=== PATIENT | male | born 1960 | race African-American/Black ===

== ENCOUNTER 2018-07-23 11:00 | Inpatient (IN) | payer MEDICAID, OTHER ==
--- NOTE | 2018-07-23 11:48 | EDPHY ---
H & P Smoking Status: Never smoked Time Seen by Provider: 07/23/18 11:24 HPI/ROS: HPI Back pain. 58-year-old male from [facility]. Patient reports that he was seen and evaluated down at [facility] about a month ago and was diagnosed with a blood infection. He reports that as a part of this workup he had a lumbar puncture done. On discharge she was sent to [facility] here in [place]. He presents to the emergency department with complaint of upper lumbar lower thoracic mid back pain onset about a week ago. This is the area where he had his lumbar puncture. He was sent for evaluation of this pain. He denies any loss of sensation or weakness in his lower extremities. He has had no new fevers. He denies any history of trauma. No bowel or bladder incontinence. No other complaints. ROS: Constitutional: No fever, no chills. No weakness. Eyes: No discharge. No changes in vision. ENT: No sore throat. No nasal congestion or rhinorrhea. Respiratory: No cough. No shortness of breath. Cardiac: No chest pain, no palpitations. Gastrointestinal: No abdominal pain, no vomiting, no diarrhea. Genitourinary: No hematuria. No dysuria or increased frequency with urination. Musculoskeletal: As above. No neck pain. No myalgias or arthralgias. Skin: No rashes. Neurological: No headache. No focal weakness or altered sensation. Past medical history: Cirrhosis, type 2 diabetes, hypertension, alcohol abuse, anemia, GERD. Social history: Alcohol abuse. Currently a resident at a [facility]. Denies smoking. Here by himself. Physical Exam: General Appearance: Alert, no distress. This patient is responding to questions appropriately and in full sentences. This patient appears well- hydrated and well-nourished. Eyes: Pupils equal and round no pallor or injection. No lid edema, erythema or injection. Respiratory: There are no retractions, lungs are clear to auscultation with good air movement bilaterally. Cardiovascular: Regular rate and rhythm. No murmur. Gastrointestinal: Abdomen is soft and nontender, mid abdominal wall hernia, easily reducible, bowel sounds normal. No focal tenderness at McBurney's point. No Mtz sign. Neurological: Motor sensory function is grossly intact. Cranial nerves are normal. Gait is normal. Skin: Warm and dry, no rashes. Musculoskeletal/back exam: Neck is supple and nontender. No CVA tenderness on palpation bilaterally, vague and mild mid upper lumbar, lower thoracic tenderness on palpation, seems to go away and not bother him when he is distracted in conversation, no paraspinal tenderness on palpation. No soft tissue swelling, ecchymosis, edema, erythema or rash noted. Negative same side and cross side straight leg raise test. He is neurologically intact in all myotomes in dermatomes of the bilateral lower extremities. Extremities are symmetrical. All joints range without pain or impingement. Psychiatric: No agitation. No depression. Database: EKG: Imaging: Hospital Personnel Director films for MRI clearance all unremarkable. Please see reports by staff radiologist Dr. Anthony Camp. MRI contrast enhanced of lumbar thoracic spine: Procedures: Emergency department course: Triage vital signs reviewed. He is afebrile. Pulse oximetry low at 91% in triage, likely baseline. Vital signs are otherwise normal. IV will be established. Concern for possible diskitis, osteomyelitis or epidural abscess. We will try to get further history on this patient from [facility]. I discussed the patient's presentation with Dr. Vasyl Frausto of the Radiology Service. He recommends a contrast enhanced MRI of the lower thoracic and upper lumbar spine to evaluate for possible fluid collection versus diskitis. This has been ordered. Patient endorses workup. 3:10 p.m., the patient has been cleared for MRI. He is going to the MRI suite now. Care turned over to Dr. Shereen wagner. If MRI is unremarkable, expected disposition is discharged to home. Differential Diagnosis: The differential diagnosis on this patient includes but is not limited to back pain of musculoskeletal etiology, diskitis, osteomyelitis, epidural abscess. AAA, acute radiculopathy, epidural compression syndrome unlikely. This represents a partial list of diagnoses considered. These considerations are based on history, physical exam, past history, reassessment and diagnostic testing. (Nathalia Ibrahim) Constitutional: Initial Vital Signs Temperature (C) 36.6 C 07/23/18 11:03 Heart Rate 94 07/23/18 11:03 Respiratory Rate 18 07/23/18 11:03 Blood Pressure 113/73 07/23/18 11:03 O2 Sat (%) 91 L 07/23/18 11:03 O2 Delivery Mode Room Air Allergies/Adverse Reactions: acetaminophen [From Tylenol] Allergy (Verified 07/23/18 18:43) Rash ibuprofen Allergy (Verified 07/23/18 17:48) Home Medications: Medication Instructions Recorded Albuterol Sulfate [Proair 2 puffs IH Q4HRS PRN 07/23/18 Respiclick] Cholecalciferol Vit D3 [Vitamin D3 50,000 unit PO TH 07/23/18 (*)] Cyclobenzaprine [Flexeril 10 MG 5 mg PO TID PRN 07/23/18 (*)] Dabigatran Etexilate Mesyl 150 mg PO BID 07/23/18 [Pradaxa 150 MG (*)] Famotidine [Pepcid 20 MG (*)] 20 mg PO DAILY 07/23/18 Furosemide [Lasix 40 MG (*)] 40 mg PO DAILY 07/23/18 Gabapentin [Neurontin 300 MG (*)] 300 mg PO TID 07/23/18 Heparin [Heparin Lock Flush 100 500 unit IVP TID 07/23/18 Unit/1 ml (*)] Herbals/Supplements -Info Only 1 ea PO DAILY 07/23/18 Levothyroxine [Synthroid 25 mcg 25 mcg PO DAILY06 07/23/18 (*)] Lidocaine [Lidoderm] 1 each TP DAILY 07/23/18 Multivitamins [Multivitamin (*)] 1 each PO DAILY 07/23/18 Spironolactone 100 mg PO DAILY 07/23/18 Vancomycin HCl in 5 % Dextrose 750 mg IV Q8HRS 07/23/18 [Vancomycin 750 mg/250 ml-D5w] levETIRAcetam [Keppra 500 mg (*)] 750 mg PO BID 07/23/18 oxyCODONE IR [Oxycodone Ir (*)] 15 mg PO Q6H PRN 07/23/18 Medical Decision Making ED Course/Re-evaluation: I assumed care of this patient at 3:[address] Ibrahim. At this time we are pending the MRI results. MRI results were called to me at 4:45 a.m.. Patient has T10, T11, T12 diskitis and osteomyelitis the paraspinal phlegmon. There is no epidural abscess. MRI findings discussed with Dr. Breanna Olivera from Neurosurgery. She reviewed the films. Recommendations include admit to the hospitalist and ID consultation for antibiotics. Course discussed with Dr. Robles Hickman will be the admitting physician. Course discussed with Dr. Naveed Valles from Infectious Disease. At this time, records from the patient's [facility] at [facility] have become available. On review, it appears that the patient actually has a known diagnosis of diskitis and has been at [facility] for prolonged admission in order to obtain 6 weeks of vancomycin. He has a history of methicillin- resistant Staph aureus. I believe that after his hospital admission for fever of unknown etiology, he was actually discharged to [facility] for ongoing treatment of diskitis and possible osteomyelitis. Emergency department pharmacist was involved in this patient's care and will contact [facility] with respect to the patient's last doses of vancomycin as well as the patient's vanc trough levels. Dr. Valles will see the patient in the hospital to provide additional recommendations concerning an individual with worsening back pain despite ongoing vancomycin administration. (Shereen Alfaro) - Data Points Laboratory Results: Laboratory Results 07/23/18 11:50 07/23/18 11:50 Microbiology Results: MICROBIOLOGY 07/23/18 17:15 Blood Blood Culture - Preliminary Medications Given: Dabigatran (Pradaxa) 150 mg PO BID [facility] Stop: 01/19/19 20:59 Last Admin: 07/24/18 21:12 Dose: 150 mg Famotidine (Pepcid) 20 mg PO DAILY [facility] Stop: 01/20/19 08:59 Last Admin: 07/24/18 09:04 Dose: 20 mg Furosemide (Lasix) 40 mg PO DAILY [facility] Stop: 01/20/19 08:59 Last Admin: 07/24/18 09:04 Dose: 40 mg Gabapentin (Neurontin) 300 mg PO TID [facility] Stop: 01/19/19 21:59 Last Admin: 07/24/18 21:12 Dose: 300 mg Vancomycin HCl 750 mg/ (Dextrose) 150 mls @ 150 mls/hr IV Q8H [facility] Stop: 08/22/18 17:59 Last Admin: 07/25/18 01:56 Dose: 150 mls Insulin Human Lispro (Humalog Lispro) 0 unit SC TIDMEAL [facility] PRN Reason: Protocol Stop: 01/20/19 07:59 Last Admin: 07/24/18 18:14 Dose: 4 units Levetiracetam (Keppra) 750 mg PO BID [facility] Stop: 01/19/19 20:59 Last Admin: 07/24/18 21:12 Dose: 750 mg Levothyroxine Sodium (Synthroid) 25 mcg PO DAILY06 [facility] Stop: 01/20/19 05:59 Last Admin: 07/25/18 05:54 Dose: 25 mcg Miscellaneous Information (Patch Removal) 1 ea TD DAILY21 [facility] Stop: 01/20/19 20:59 Last Admin: 07/24/18 21:12 Dose: 1 ea Miscellaneous Medication (Icy Hot Lidocaine/Menthol 4%/1% Patch) 1 patch TD DAILY [facility] Stop: 01/20/19 08:59 Last Admin: 07/24/18 09:08 Dose: 1 patch Multivitamins (Tab-A-Benjamin) 1 each PO DAILY [facility] Stop: 01/20/19 08:59 Last Admin: 07/24/18 09:04 Dose: 1 each Oxycodone HCl (Oxycodone Ir) 5 - 10 mg PO Q3HRS PRN PRN Reason: Pain, Severe Able to Take PO Stop: 08/02/18 18:18 Last Admin: 07/25/18 05:54 Dose: 10 mg Oxycodone HCl (Oxycodone Ir) 15 mg PO Q6H PRN PRN Reason: BREAKTHROUGH PAIN Stop: 08/02/18 18:21 Last Admin: 07/23/18 19:39 Dose: 15 mg Spironolactone (Aldactone) 100 mg PO DAILY [facility] Stop: 01/20/19 08:59 Last Admin: 07/24/18 09:07 Dose: Not Given Discontinued Medications Hydromorphone HCl (Dilaudid) 0.5 mg IVP EDNOW ONE Stop: 07/23/18 17:31 Last Admin: 07/23/18 17:41 Dose: 0.5 mg Ibuprofen (Motrin) 600 mg PO EDNOW ONE Stop: 07/23/18 15:13 Last Admin: 07/23/18 15:32 Dose: Not Given Point of Care Test Results: Chemistry 07/23/18 11:57 POC Sodium 137 mEq/L mEq/L (135-145) POC Potassium 4.6 mEq/L mEq/L (3.3-5.0) POC Chloride 96 mEq/L L mEq/L (97-110) POC Total CO2 29 mEq/L mEq/L (22-31) POC BUN 7 mg/dL mg/dL (7-23) POC Creatinine 0.7 mg/dL mg/dL (0.7-1.3) POC Glucose 322 mg/dL H mg/dL (70-100) ISTAT H&H 07/23/18 11:57 POC Hgb 11.6 gm/dL L gm/dL (13.7-17.5) POC Hct 34 % L % (40-51) Departure - Departure Disposition: [facility] Inpatient Acute Clinical Impression: Osteomyelitis of thoracic spine Back pain Qualifiers: Back pain location: back pain in unspecified location Chronicity: unspecified Back pain laterality: midline Qualified Code(s): M54.89 - Other dorsalgia Discitis Qualifiers: Spinal region: thoracic Qualified Code(s): M46.44 - Discitis, unspecified, thoracic region Condition: Good
[2018-07-23] MEDS ORDERED: IBUPROFEN 600 MG TAB PO ONE (15:12)
[2018-07-23] MEDS ORDERED: GADOBUTROL 10 ML VIAL IVP ONE (15:26)
[2018-07-23 17:15] LABS: PLATELET COUNT 357 10^3/uL (150-400)
[2018-07-23] MEDS ORDERED: HYDROmorphONE/DILAUDID 1 MG/ML INJ IVP ONE (17:30)
[2018-07-23] MEDS ORDERED: HYDROmorphONE/DILAUDID 1 MG/ML INJ IVP PRN (18:19)
[2018-07-23] MEDS ORDERED: ONDANSETRON DISINTEGRATING 4 MG TAB PO PRN (18:19)
[2018-07-23] MEDS ORDERED: ONDANSETRON 4 MG/2 ML VIAL IVP PRN (18:19)
[2018-07-23] MEDS ORDERED: ACETAMINOPHEN 325 MG TAB PO PRN (18:19)
[2018-07-23] MEDS ORDERED: HYDROCODONE/APAP 5/325 TAB PO PRN (18:19)
[2018-07-23] MEDS ORDERED: LORazepam 2 MG/ML INJ IVP PRN (18:19)
[2018-07-23] MEDS ORDERED: PROMETHAZINE HCL 25 MG/ML INJ IVP PRN (18:19)
--- NOTE | 2018-07-23 18:19 | PDGENHP ---
History and Physical - Chief Complaint back pain - History of Present Illness 58 yo M with PMH that includes MRSA bacteremia with associated T10-12 discitis and osteomyelitis for which he has been on vancomycin since early June (1st positive blood culture on 06/03, persistently positive through 06/18--prolonged hospitalization at [facility]) and plan to continue until 08/05 at least presenting from SNF where he was discharged 07/10. It should be noted patient has reports of dementia and schizophrenia and documented to lack capacity from prior hospitalization, and history is limited by his mental status and lack of understanding of his medical issues. Patient notes he never felt a whole lot better even when he was discharged, and had concerns that the hospital 'did not know what they were doing.' He states since discharge the pain has gotten worse and worse, he reports fevers intermittently as well. He denies any new weakness or numbness and notes he has been able to walk as well as he did at the time of discharge, and uses a walker sometimes. On review of records in [facility] from his prior hospitalization, at that time he had left sided weakness that had been improving. His last MRI performed prior to dc was on 07/08 and at that time the radiologist read was for worsening T10-11 and T11-12 discitis and osteomyelitis with associated vertebral body edema and endplate erosions, however clinical team felt he was clinically improving and that the MRI was 'lagging' behind his clinical improvement and thus he was discharged to SNF at that time. 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 History Information - Allergies/Home Medication List Allergies/Adverse Reactions: acetaminophen [From Tylenol] Allergy (Verified 07/23/18 18:43) Rash ibuprofen Allergy (Verified 07/23/18 17:48) Home Medications: Albuterol Sulfate [Proair Respiclick] 2 puffs IH Q4HRS PRN 07/23/18 [Last Taken Unknown] Cholecalciferol Vit D3 [Vitamin D3 (*)] 50,000 unit PO TH 07/23/18 [Last Taken Unknown] Cyclobenzaprine [Flexeril 10 MG (*)] 5 mg PO TID PRN 07/23/18 [Last Taken Unknown] Dabigatran Etexilate Mesyl [Pradaxa 150 MG (*)] 150 mg PO BID 07/23/18 [Last Taken Unknown] Famotidine [Pepcid 20 MG (*)] 20 mg PO DAILY 07/23/18 [Last Taken Unknown] Furosemide [Lasix 40 MG (*)] 40 mg PO DAILY 07/23/18 [Last Taken Unknown] Gabapentin [Neurontin 300 MG (*)] 300 mg PO TID 07/23/18 [Last Taken Unknown] Heparin [Heparin Lock Flush 100 Unit/1 ml (*)] 500 unit IVP TID 07/23/18 [Last Taken Unknown] Herbals/Supplements -Info Only 1 ea PO DAILY 07/23/18 [Last Taken Unknown] Levothyroxine [Synthroid 25 mcg (*)] 25 mcg PO DAILY06 07/23/18 [Last Taken Unknown] Lidocaine [Lidoderm] 1 each TP DAILY 07/23/18 [Last Taken Unknown] Multivitamins [Multivitamin (*)] 1 each PO DAILY 07/23/18 [Last Taken Unknown] Spironolactone 100 mg PO DAILY 07/23/18 [Last Taken Unknown] Vancomycin HCl in 5 % Dextrose [Vancomycin 750 mg/250 ml-D5w] 750 mg IV Q8HRS [Last Taken 07/23/18 08:00] levETIRAcetam [Keppra 500 mg (*)] 750 mg PO BID 07/23/18 [Last Taken Unknown] oxyCODONE IR [Oxycodone Ir (*)] 15 mg PO Q6H PRN 07/23/18 [Last Taken Unknown] I have personally reviewed and updated: family history, medical history, social history, surgical history - Past Medical History dementia (felt to lack capacity at his last hospital stay), DVT (RLE), GERD, psychiatric history (schizophrenia), seizures Additional medical history: MRSA bacteremia and discitis/osteomyelitis thoracic spine. alcohol abuse. alcoholic cirrhosis--ascites, LE edema, coagulopathy. neuropathy. severe protein calorie malnutrition. 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 chronic pain with continuous opiate use and dependency - Surgical History Reports: appendectomy, cholecystectomy, hernia repair Additional surgical history: tracheostomy - Family History Positive for: non-pertinent - Social History Smoking Status: Never smoked Alcohol Use: Other (previously heavy, now sober since prolonged hospitalization) Drug Use: None Additional social history: previously homeless, now at [facility] following recent prolonged hospitalization Review of Systems Review of Systems: ROS: 10pt was reviewed & negative except for what was stated in HPI & below Physical Exam Physical Exam: Temp Pulse Resp BP Pulse Ox 36.7 C 97 16 112/75 93 07/23/18 17:43 07/23/18 17:43 07/23/18 17:43 07/23/18 17:43 07/23/18 17:43 Constitutional: chronically ill appearing, cachectic Eyes: PERRL, anicteric sclera Ears, Nose, Mouth, Throat: moist mucous membranes, hearing normal, poor dentition Cardiovascular: regular rate and rhythym, systolic murmur, edema Respiratory: no respiratory distress, no rales or rhonchi Gastrointestinal: normoactive bowel sounds, soft, non-tender abdomen Genitourinary: no bladder tenderness Skin: warm, normal color Musculoskeletal: full muscle strength, no muscle tenderness Neurologic: CN II-XII Intact, No AAOx3, No weakness, No numbness Psychiatric: encephalopathic, poor insight, poor memory Lab Data & Imaging Review 07/23/18 11:50 07/23/18 11:50 WBC 10.37 10^3/uL (3.80-9.50) H 07/23/18 11:50 RBC 3.45 10^6/uL (4.40-6.38) L 07/23/18 11:50 Hgb 10.5 g/dL (13.7-17.5) L 07/23/18 11:50 POC Hgb 11.6 gm/dL (13.7-17.5) L 07/23/18 11:57 Hct 32.8 % (40.0-51.0) L 07/23/18 11:50 POC Hct 34 % (40-51) L 07/23/18 11:57 MCV 95.1 fL (81.5-99.8) 07/23/18 11:50 MCH 30.4 pg (27.9-34.1) 07/23/18 11:50 MCHC 32.0 g/dL (32.4-36.7) L 07/23/18 11:50 RDW 13.2 % (11.5-15.2) 07/23/18 11:50 Plt Count 357 10^3/uL (150-400) 07/23/18 11:50 MPV 10.4 fL (8.7-11.7) 07/23/18 11:50 Neut % (Auto) 68.4 % (39.3-74.2) 07/23/18 11:50 Lymph % (Auto) 17.6 % (15.0-45.0) 07/23/18 11:50 Price % (Auto) 10.4 % (4.5-13.0) 07/23/18 11:50 Eos % (Auto) 2.4 % (0.6-7.6) 07/23/18 11:50 Baso % (Auto) 0.9 % (0.3-1.7) 07/23/18 11:50 Nucleat RBC Rel Count 0.0 % (0.0-0.2) 07/23/18 11:50 Absolute Neuts (auto) 7.09 10^3/uL (1.70-6.50) H 07/23/18 11:50 Absolute Lymphs (auto) 1.83 10^3/uL (1.00-3.00) 07/23/18 11:50 Absolute Monos (auto) 1.08 10^3/uL (0.30-0.80) H 07/23/18 11:50 Absolute Eos (auto) 0.25 10^3/uL (0.03-0.40) 07/23/18 11:50 Absolute Basos (auto) 0.09 10^3/uL (0.02-0.10) 07/23/18 11:50 Absolute Nucleated RBC 0.00 10^3/uL (0-0.01) 07/23/18 11:50 Immature Gran % 0.3 % (0.0-1.1) 07/23/18 11:50 Immature Gran # 0.03 10^3/uL (0.00-0.10) 07/23/18 11:50 ESR 57 MM/HR (0-20) H 07/23/18 11:50 POC Sodium 137 mEq/L (135-145) 07/23/18 11:57 Sodium 134 mEq/L (135-145) L 07/23/18 11:50 POC Potassium 4.6 mEq/L (3.3-5.0) 07/23/18 11:57 Potassium 4.7 mEq/L (3.5-5.2) 07/23/18 11:50 POC Chloride 96 mEq/L (97-110) L 07/23/18 11:57 Chloride 94 mEq/L (97-110) L 07/23/18 11:50 Carbon Dioxide 29 mEq/l (22-31) 07/23/18 11:50 POC Total CO2 29 mEq/L (22-31) 07/23/18 11:57 Anion Gap 11 mEq/L (6-14) 07/23/18 11:50 POC BUN 7 mg/dL (7-23) 07/23/18 11:57 BUN 10 mg/dL (7-23) 07/23/18 11:50 Creatinine 0.7 mg/dL (0.7-1.3) 07/23/18 11:50 POC Creatinine 0.7 mg/dL (0.7-1.3) 07/23/18 11:57 Estimated GFR > 60 07/23/18 11:50 Glucose 321 mg/dL (70-100) H 07/23/18 11:50 POC Glucose 322 mg/dL (70-100) H 07/23/18 11:57 Calcium 8.9 mg/dL (8.5-10.4) 07/23/18 11:50 C-Reactive Protein 6.4 mg/L (<10.0) 07/23/18 11:50 Urine Color YELLOW 07/23/18 17:15 Urine Appearance CLEAR 07/23/18 17:15 Urine pH 6.0 (5.0-7.5) 07/23/18 17:15 Ur Specific [place] 1.013 (1.002-1.030) 07/23/18 17:15 Urine Protein NEGATIVE (NEGATIVE) 07/23/18 17:15 Urine Ketones NEGATIVE (NEGATIVE) 07/23/18 17:15 Urine Blood NEGATIVE (NEGATIVE) 07/23/18 17:15 Urine Nitrate NEGATIVE (NEGATIVE) 07/23/18 17:15 Urine Bilirubin NEGATIVE (NEGATIVE) 07/23/18 17:15 Urine Urobilinogen NEGATIVE EU (0.2-1.0) 07/23/18 17:15 Ur Leukocyte Esterase NEGATIVE (NEGATIVE) 07/23/18 17:15 Urine RBC 1-3 /hpf (0-3) 07/23/18 17:15 Urine WBC 1-3 /hpf (0-3) 07/23/18 17:15 Ur Epithelial Cells TRACE /lpf (NONE-1+) 07/23/18 17:15 Urine Glucose 1+ (NEGATIVE) H 07/23/18 17:15 Visualized and Interpreted imaging results: Yes Interpretation: L spine MRI: T10-T11 and T11-T12 diskitis, osteomyelitis and ventral paraspinal phlegmon with mild canal stenosis Visualized and Interpreted EKG results: Yes EKG Interpretation: Positive for: normal sinsus rhythm EKG additional interpertation: LAD Assessment & Plan Assessment: Back pain (Acute) 58 yo M with PMH of etoh cirrhosis, MRSA bacteremia and thoracic diskitis, osteomyelitis diagnosed in June presenting with worsening back pain and what appears to be worsening spinal OM # diskitis/osteomyelitis: involving t10-11 and t11-12 and now with report of associated phlegmon, not appreciated on MRI on 07/08 though at that time it was felt to be radiographically worsening. His blood cultures have been negative at [facility] since 06/20 and last on 07/05. Still on vanco and most recent trough at [facility] was therapeutic. NSG has been consulted as has ID, repeat cultures drawn, continued on vanco for now. He did have tissue bx on 06/21 c/w MRSA # MRSA bacteremia: as above, vanco # ? TV vegetation: MIKO performed at [facility] that noted possible TV mass-- cardiology at that time recommending repeat MIKO in several months # etoh cirrhosis: without significant ascites on exam but does have LE edema, overall appears fairly well compensated, continue lasix/aldactone # hyperglycemia: presumably stress response without DM, on 06/10 A1c of 5.3 but given how high his glucose is currently will repeat, started on SSI # dementia: patient with very limited insight and poor memory, extensive eval at [facility] with conclusion that he lacks capacity and his daughter Lucila was assigned as his proxy # DVT: of RLE, on pradaxa currently # etoh abuse: in remission since his hospitalization # sz d/o: continue on keppra # IP status--currently resides at [facility], previously homeless # Patient new to my care. Old records reviewed and summarized as above. Care plan reviewed with ER doctor.
[2018-07-23 18:20] LABS: INR 1.48 (0.83-1.16); PROTIME(PATIENT) 17.3 SEC (12.0-15.0)
[2018-07-23] MEDS ORDERED: CYCLOBENZAPRINE 10 MG TAB PO PRN (18:22)
[2018-07-23] MEDS ORDERED: ALBUTEROL 60 PUFFS/8 GM MDI IH PRN (18:30)
[2018-07-23] MEDS: VANCOMYCIN 750 MG in D5W 150 ML IV SCH (18:30)
--- NOTE | 2018-07-23 18:47 | CPEKG ---
Test Reason : OPEN Blood Pressure : / mmHG Vent. Rate : 095 BPM Atrial Rate : 096 BPM P-R Int : 170 ms QRS Dur : 081 ms QT Int : 364 ms P-R-T Axes : 074 -30 074 degrees QTc Int : 458 ms Sinus rhythm Left axis deviation Minimal ST elevation, anterior leads Confirmed by Shereen Alfaro ([id number]) on 07/23/2018 6:46:41 PM Referred By: Shereen Alfaro Confirmed By:Shereen Alfaro
[2018-07-23] MEDS ORDERED: D50W 25 GM/50 ML SYR IVP PRN (18:48)
[2018-07-23] MEDS: oxyCODONE IR 15 MG TAB PO PRN (19:39)
[2018-07-23] MEDS: DABIGATRAN ETEXILATE MESYL 150 MG CAP PO SCH (20:21)
[2018-07-23] MEDS: levETIRAcetam 250 MG TAB PO SCH (20:21)
[2018-07-23] MEDS: GABAPENTIN 300 MG CAP PO SCH (22:10)
[2018-07-24] MEDS: VANCOMYCIN 750 MG in D5W 150 ML IV SCH ×3 (02:18→18:06)
[2018-07-24] MEDS: oxyCODONE IR 5 MG TAB PO PRN ×6 (02:25→23:47)
[2018-07-24] MEDS: LEVOTHYROXINE 25 MCG TAB PO SCH (04:39)
[2018-07-24 05:00] LABS: PLATELET COUNT 304 10^3/uL (150-400)
[2018-07-24] MEDS: INSULIN LISPRO 100 UNIT/ML SC SCH ×3 (09:02→18:14)
[2018-07-24] MEDS: GABAPENTIN 300 MG CAP PO SCH ×3 (09:03→21:12)
[2018-07-24] MEDS: MULTIVITAMINS 1 EACH TAB PO SCH (09:04)
[2018-07-24] MEDS: DABIGATRAN ETEXILATE MESYL 150 MG CAP PO SCH ×2 (09:04→21:12)
[2018-07-24] MEDS: FUROSEMIDE 40 MG TAB PO SCH (09:04)
[2018-07-24] MEDS: levETIRAcetam 250 MG TAB PO SCH ×2 (09:04→21:12)
[2018-07-24] MEDS: FAMOTIDINE 20 MG TAB PO SCH (09:04)
[2018-07-24] MEDS: SPIRONOLACTONE 100 MG TAB PO SCH (09:07)
[2018-07-24] MEDS: LIDOCAINE 4%/MENTHOL 1% PATCH TD SCH (09:08)
--- NOTE | 2018-07-24 09:54 | ASMTLACE ---
SCOTT Acuity / Level of Answers: Yes Care: Did the patient have an inpatient admission? Comorbidities - select Answers: Dementia all that apply Diabetes (uncontrolled or controlled) Opioid dependence / Chronic pain Other Notes: Cirrhosis; HTN; DVT; Se izu res # of Emergency department Answers: 1-2 visits in the last 6 months Social determinants Answers: History of substance abuse (ETOH, street drugs, prescription drugs, etc.) Mental health diagnosis (anxiety, depression, pers onality disorders, etc.) Score: 19 Date Signed: 07/24/2018 09:53 AM Electronically Signed By:Evelyne Sinclair
--- NOTE | 2018-07-24 10:55 | GCON ---
[f rep st] CONSULTATION NEUROSURGICAL CONSULTATION CHIEF COMPLAINT: Back pain. HISTORY OF PRESENT ILLNESS: The patient is a 58-year-old male with a history of a MRSA bacteremia wi th an associated T10-11 and T11-12 diskitis and osteomyelitis. He was started on IV vancomycin in june and had a prolonged hospitalization at [facility]. He was recently readmitted to [facility] with intermittent fevers and worsening pain. An MRI was obtained and ruben rosurgical consultation was requested. He currently complains of ongoing back pain. He denies any p ain in his legs. He denies any weakness, paresthesias, ataxia, or bowel or bladder problems. PAST MEDICAL HISTORY: 1. Dementia. 2. Schizophrenia. 3. Right lower extremity DVT. 4. GERD. 5. Seizures. 6. MRSA bacteremia. PAST SURGICAL HISTORY: Includes appendectomy, tracheostomy, cholecystectomy, and hernia repair. MEDICATIONS: Prior to admission are vitamin D, subcu heparin, albuterol, Flexeril, Pradaxa, Pepcid, Lasix, Neurontin, Keppra, Synthroid, oxycodone, multivitamins, spironolactone, vancomycin. ALLERGIES: Acetaminophen and ibuprofen. FAMILY HISTORY: Patient has no family history of spine problems. SOCIAL HISTORY: Patient currently resides at [facility]. He is wi th grown children. He denies smoking, drinking, or drug use. REVIEW OF SYSTEMS: Negative. PHYSICAL EXAM: GENERAL: Patient is a 58-year-old male lying in bed, no apparent distress. HEAD, EY ES, EARS, NOSE, AND THROAT: Negative for drainage. EXTREMITIES: [place], warm, and dry. NEUROLOGIC: Patient is awake, alert, oriented x4. Pupils equal, round, reactive to light. Extraocular motions are intact. There is no evidence of facial droop. Tongue and uvula are midline. Spinal access musc les are intact. His motor strength is 5/5 in his arms and legs. Sensation is grossly intact to ligh t touch in his arms and legs. Deep tendon reflexes are 1/4. LABORATORY/IMAGING: CBC from 07/24/2018, has a white blood cell count of 9.83, hemoglobin of 9.8, pl atelet count of 304. An ESR from 07/23/2018 is 57 and a CRP on 07/23/2018 was 6.4. Blood cultures f rom 07/22/2018, are currently pending. MRI of the lumbar spine done at [facility] on 07/23/2018, shows preservation of the sag ittal alignment. There are minimal degenerative changes. At T10-11 and T11-12, there is slight incr eased signal within the disk space consistent with diskitis and osteomyelitis. There is no evidence of an epidural abscess with no evidence of significant central canal stenosis. IMPRESSION: This is a 58-year-old male with a previous history of a methicillin-resistant Staphyloco ccus aureus bacteremia and T10-11, T11-12 diskitis. He was readmitted with back pain and possible fe vers. He is neurologically intact. PLAN: All the above discussed in detail with the patient. At this point time, the patient is neurol ogically intact with no lower extremity radicular symptoms. His MRI is consistent with a T10-11 and T11-12 diskitis and is currently on IV vancomycin. At this point time, there is no indication for waddell rgical intervention and we recommend that he be followed on a conservative basis. He is on IV vancom ycin and this is under the care of the hospitalists. We will follow him on a conservative basis for now and we will consider new imaging if he had a significant decline in his condition with new neurol ogical symptoms. This patient was seen with Dr. Olivera this morning at approximately 7:30 a.m. Please call with any neurological changes. /[id number]/MODL
--- NOTE | 2018-07-24 12:18 | HOSPPROG ---
Hospitalist Progress Note Assessment/Plan: 58 yo M with PMH of etoh cirrhosis, recent MRSA bacteremia and thoracic diskitis , osteomyelitis diagnosed in June and treated at [facility] admitted with worsening back pain and possible worsening spinal OM. MRI obtained at [facility] on c/w T10-11, T11-12 Diskitis, OM, and now phlegmon. ID and NSG have been consulted. NSG recommends no surgical interventions and continued Vancomycin. Awaiting ID recommendations who are reviewing imaging studies from [facility] # diskitis/osteomyelitis: involving t10-11 and t11-12 and now with report of associated phlegmon, not appreciated on MRI on 07/08 though at that time it was felt to be radiographically worsening. His blood cultures have been negative at [facility] since 06/20 and last on 07/05. -NSG per above -Awaiting ID reccs -cont Vancomycin # MRSA bacteremia: as above, vanco # ? TV vegetation: MIKO performed at [facility] that noted possible TV mass-- cardiology at that time recommending repeat MIKO in several months. This can be done as an op unless recommended earlier by ID # etoh cirrhosis: without significant ascites on exam but does have LE edema, overall appears fairly well compensated, continue lasix/aldactone # hyperglycemia: started on SSI . A1C 6.6 # dementia: patient with very limited insight and poor memory, extensive eval at [facility] with conclusion that he lacks capacity and his daughter Lucila was assigned as his proxy # DVT: of RLE, on pradaxa currently # etoh abuse: in remission since his hospitalization # sz d/o: continue on keppra # IP status--currently resides at [place], previously homeless Subjective: reports intermittent pain Objective: Vital Signs Temp Pulse Resp BP Pulse Ox 37.1 C 87 16 100/52 L 95 07/24/18 11:40 07/24/18 11:40 07/24/18 11:40 07/24/18 11:40 07/24/18 11:40 Laboratory Results 07/24/18 04:30 07/24/18 04:30 07/23/18 07/24/18 07/25/18 05:59 05:59 05:59 Output Total 350 550 Balance -350 -550 PT 17.3 SEC (12.0-15.0) H 07/23/18 17:15 INR 1.48 (0.83-1.16) H 07/23/18 17:15 - Physical Exam Constitutional: no apparent distress Eyes: PERRL Ears, Nose, Mouth, Throat: moist mucous membranes, hearing normal Cardiovascular: regular rate and rhythym Respiratory: no respiratory distress Gastrointestinal: normoactive bowel sounds, soft, non-tender abdomen Skin: warm Psychiatric: interacting appropriately, not anxious Lymph, Heme, Immunologic: No petechiae ICD10 Worksheet Patient Problems: Problems Problem Status Onset Back pain Acute Discitis Acute Osteomyelitis of thoracic spine Acute
--- NOTE | 2018-07-24 13:56 | ASMTCMCOM ---
CM Note CM Note Notes: CM spoke to Dr. Wynn about this case. Pt is a 58 y/o man admitted for back pain. Pt is currently residing at [facility]. CM sent [place] updates. As of today, pt is decisional. Per H&P, pt may not have been decisional at previous hospital which was [facility]. Pt has dementia and schizophrenia diagnosis. Pts daughter Lucila is his MDPOA. CM attempted to call her and she did not tile picker/her voicemail was not set up. Referral made to [facility]. PT, OT, ID has been consulted and awaiting recommendations. CM to follow. Plan: Most likely back to [facility] Date Signed: 07/24/2018 01:55 PM Electronically Signed By:SOFI Belle
--- NOTE | 2018-07-24 14:16 | WOCRNPDOC ---
MARLENI Advanced Assessment Note - Skin Integrity Problem, Advanced Assess Coccyx Dressing Type: Allevyn Life Dressing Description: Clean/Dry, Intact Daly Wound Tissue: Blanching Pressure Injury Present on Admit: Yes Skin Integrity Problem Comment: Patient sacrococcygeal area currently all blanching. There is a small 1x1 peeling spot at the coccyx. Per patient, he was recently (either 5 weeks ago or 5 months ago, patient stated both time frames) at another facility where he had developed an open wound at this currently peeling spot. No evidence of thick scarring or metal spray operator tones of healing skin present. Unsure if patient is remembering accurately given his varying details. Also present are two darker areas to either side of coccyx measuring at roughly 1.5x1cm. No broken skin or infection noted here. Unsure if these are DTI or just darker pigmented tissue given the patients dark skin tone. Will initiate turning schedule. Mepilex sacral border placed upside down. Extensively educated the patient on turning and positioning. Wound care will follow.
--- NOTE | 2018-07-24 15:04 | PDMN ---
Medical Necessity Medical necessity: Pt meets IP criteria per MD & MCG M-600; est los >2 mn for eval/tx of worsening spinal osteomyelitis/diskitis w/associated phlegmon; admit for Neurosurgery/ID consults & IV abx; hx MRSA bacteremia, dementia, schizophrenia, DVT on AC, alcoholic cirrhosis; per H&P & order 07/23/18
[2018-07-24] MEDS: PATCH REMOVAL 1 EA PATCH TD SCH (21:12)
--- NOTE | 2018-07-24 21:42 | GCON ---
[f rep st] CONSULTATION INFECTIOUS DISEASE CONSULTATION REQUESTING PHYSICIAN: Robles Hickman MD REASON FOR CONSULTATION: MRSA bacteremia with associated T9 to T12 diskitis, admitted for increasing back pain and management of ongoing infection. HISTORY OF PRESENT ILLNESS: This is a 58-year-old male with a complex history relating to chronic homelessness, alcohol abuse, hypertension, who was admitted to outside hospital on 05/16/2018 for abdominal pain and increasing abdominal distention. The patient underwent evaluation for SVT, and by report, paracentesis was negative, but imaging demonstrated colitis, and patient was empirically treated with ceftriaxone and metronidazole. During his hospitalization, increasing concern for ongoing infection was identified. There seems to have been concern due to increasing leukocytosis, and blood cultures were first obtained on 06/04/2018, which rapidly became positive for MRSA and were persistently positive until 06/24/2018, which was the 1st day of negative blood cultures. Patient was initially started on IV vancomycin and changed to daptomycin on 06/11, rifampin added on 06/17, and was changed back to vancomycin on 07/02/2018 at 750 mg IV q.8, and this has been the dose that he has been maintained on while at [facility]. During this hospitalization, patient had an extensive workup, including his initial MRI of his spine on 06/06/2018, which had minimal changes. He also had a CT scan performed on June 07 which showed biliary dilatation, but no other focal finding, and underlying liver cirrhosis. He had a WBC scan on 06/12 that was negative. A transthoracic echo was performed upon initial blood culture positivity that was negative. A subsequent MIKO was performed 06/19, which showed a subvalvular mass of the tricuspid valve, most consistent with a myxoma. With ongoing back pain, the patient had a repeat MRI of the cervical, thoracic and lumbar spine on 06/20, which showed possible diskitis, osteomyelitis at T9, T12, and patient underwent aspiration of this area on that date, which eventually grew MRSA. A workup for possible underlying malignancy was performed, including an SPEP which was negative. In addition, imaging of his right lower extremity clot was repeated on June 06, which showed a resolving DVT. Finally, a CT scan was performed on 07/08/2018, which showed cirrhosis of the liver, small right pleural effusion, possible esophageal stricture, small gallstone, ascites, and a decreased T11-T12 superior endplate abnormality and changes consistent with chronic pancreatitis. MRI of thoracic spine specifically noted no epidural abscess present. Patient was discharged to [facility] on 07/10/2018 and has been there since that time, receiving IV vancomycin. The patient states that progressively over the last week or two he has had progressive back pain, and the patient makes implications he has refused to follow up with providers in [place]. Therefore, patient was sent to the [facility] Emergency Room for ongoing evaluation. PAST MEDICAL HISTORY: Includes cirrhosis, alcohol abuse, macrocytic anemia, right lower extremity DVT, history of seizure disorder, gastroesophageal reflux disease and current infection relating to MRSA, including T-spine osteomyelitis , diskitis. He also carries a diagnosis of schizophrenia and possible dementia. PAST SURGICAL HISTORY: Appendectomy, cholecystectomy, hernia repair. He has a remote history of a tracheostomy for pneumonia. ALLERGIES: Acetaminophen and ibuprofen. MEDICATIONS: Include albuterol, Flexeril t.i.d. p.r.n. spasm, Pradaxa 150 mg b.i.d., Pepcid 20 mg daily, Lasix 40 mg daily, gabapentin 300 mg p.o. t.i.d., Keppra 750 mg twice daily, insulin sliding scale, Ativan 0.5 to 1 mg IV q.8 p.r.n., multivitamin, Zofran as needed, oxycodone 5 to 10 mg q.3 p.r.n. with breakthrough oxycodone, Phenergan, Aldactone 100 mg daily, vancomycin 750 mg IV q. 8. FAMILY HISTORY: Reviewed and noncontributory. SOCIAL HISTORY: Never smoked. Heavy alcohol. Homelessness. He has 3 daughters, one that is currently involved. REVIEW OF SYSTEMS: A complete 10-point review of systems was performed and is negative except as mentioned in the HPI. PHYSICAL EXAM: VITAL SIGNS: The patient has been afebrile throughout his hospitalization. T max and current 37.1. BP 110/70. Heart rate 95. Respiratory rate 17. Saturation 95% on room air. GENERAL: This was a thin, nontoxic-appearing male, somewhat lethal and very tangential. HEENT: No conjunctival injection. Oropharynx: Moist mucous membranes. Fair dentition. No oral ulcerations or exudate. NECK: Supple. CARDIOVASCULAR: Difficult exam due to patient's unwillingness to stop talking. No murmurs detected. Regular rate. CHEST: Clear to auscultation bilaterally. ABDOMEN: Thin. Slightly distended. No clear fluid wave. Nontender. : No Cruz. EXTREMITIES: Minimal lower extremity edema. No peripheral stigmata of endocarditis. SKIN: No rashes. NEUROLOGICAL: He was moving all 4 extremities equally. His motor and sensory were intact in the lower extremity. LABORATORY AND X-RAY DATA: Labs on admission: White count 10, hematocrit 32, platelets of 358. White count is 9.8 today. ESR 57. CRP is 6.4, normal being less than 10. LFTs are all within normal limits except for albumin 3.3 and total protein 7.2. INR 1.48. Urinalysis was negative except for glucose present. MRI was repeated on admission here at [facility], which showed T10-T11 and T11-T12 diskitis, osteomyelitis, and ventral paraspinal phlegmon; a moderate anterior wedge compression fracture at T11; and a T10-T11 left paramedian disk osteophyte complex resulting in some canal stenosis. No epidural abscess or cord compression. Blood cultures were collected on admission from 07/23 and are pending. Chest x-ray was performed without focal infiltrate. ASSESSMENT AND PLAN: This is a complex process in this 58-year-old male with underlying diabetes, cirrhosis, who recently had a very prolonged hospitalization for methicillin-resistant Staphylococcus aureus bacteremia with almost 20 days of bacteremia, with resultant identification of T10 to T12 diskitis and osteomyelitis, biopsy-proven. Blood cultures have been negative since June 24. The patient has had excellent levels of vancomycin at 750 mg IV 8. Patient also with a subvalvular mass of the tricuspid valve, unclear if this was seeded during prolonged bacteremia, but certainly this is of high concern. Overall predisposing factor to this deep-seated infection due to methicillin-resistant Staphylococcus aureus is likely underlying cirrhosis. Notably, PIC line was placed after blood cultures were cleared on 06/28/2018. Patient was admitted for worsening back pain, and there are reviewed neurosurgical notes, as well as MRI, and there is no immediate urgency for surgical intervention as there is no cord compression. Notably, additional findings have been noted and compared to reports at outside hospital, including a ventral paraspinal phlegmon wedge compression fracture of T11 that could constitute patient's worsening back pain. He does have a mild leukocytosis as well. 1. To further assess the significance of his MRI finding, have requested scans from outside hospital to be sent to [facility] for comparison. Then once these are available, we will review with Neurosurgery. 2. Repeat blood cultures to assess for resurgence of methicillin-resistant Staphylococcus aureus bacteremia versus another process, such as PIC line infection. 3. Continue vancomycin at its current dose with a goal trough around 20. At this point, no obvious toxicity related to vancomycin. Thank you for the consultation. Time: Greater than 80 minutes. Greater than 50% of time spent was review of outside records and coordination of care with team. /[id number]/MODL MTDD
[2018-07-25] MEDS: VANCOMYCIN 750 MG in D5W 150 ML IV SCH ×3 (01:56→18:41)
[2018-07-25] MEDS: oxyCODONE IR 5 MG TAB PO PRN ×5 (05:54→22:07)
[2018-07-25] MEDS: LEVOTHYROXINE 25 MCG TAB PO SCH (05:54)
--- NOTE | 2018-07-25 07:12 | SOAPPROG ---
SOAP Progress Note Assessment/Plan: Assessment: 58 yo M with subacute MRSA bacteremia and T10-12 osteomyelitis Plan: neuro: stable and doing well overall on Vanco per ID PT/OT no acute Neurosurgical issue at this point in time, will sign off Follow up with Dr Olivera in 2-4 weeks, to schedule follow up appointment please call with neuro changes or questions discussed with DR Olivera 07/25/18 07:10 Subjective: continued back pain, no leg pain, no weakness, no bowel/bladder problems. Objective: Vital Signs Temp Pulse Resp BP Pulse Ox 36.6 C 76 16 107/71 96 07/25/18 03:26 07/25/18 03:26 07/25/18 03:26 07/25/18 03:26 07/25/18 03:26 Laboratory Results 07/24/18 04:30 07/24/18 04:30 07/24/18 07/25/18 07/26/18 05:59 05:59 05:59 Intake Total 1150 Output Total 350 1275 450 Balance -350 -125 -450 PT 17.3 SEC (12.0-15.0) H 07/23/18 17:15 INR 1.48 (0.83-1.16) H 07/23/18 17:15 AAOx4, +FC PERRL, EOMI, no facial droop 5/5 + light touch ICD10 Worksheet Patient Problems: Problems Problem Status Onset Back pain Acute Discitis Acute Osteomyelitis of thoracic spine Acute
[2018-07-25] MEDS: DABIGATRAN ETEXILATE MESYL 150 MG CAP PO SCH ×2 (09:17→20:58)
[2018-07-25] MEDS: LIDOCAINE 4%/MENTHOL 1% PATCH TD SCH (09:17)
[2018-07-25] MEDS: MULTIVITAMINS 1 EACH TAB PO SCH (09:18)
[2018-07-25] MEDS: GABAPENTIN 300 MG CAP PO SCH ×3 (09:18→20:58)
[2018-07-25] MEDS: levETIRAcetam 250 MG TAB PO SCH ×2 (09:18→20:58)
[2018-07-25] MEDS: SPIRONOLACTONE 100 MG TAB PO SCH (09:18)
[2018-07-25] MEDS: FAMOTIDINE 20 MG TAB PO SCH (09:18)
[2018-07-25] MEDS: FUROSEMIDE 40 MG TAB PO SCH (09:18)
[2018-07-25] MEDS ORDERED: FUROSEMIDE 40 MG TAB PO SCH (09:19)
[2018-07-25] MEDS: INSULIN LISPRO 100 UNIT/ML SC SCH ×3 (09:20→18:34)
--- NOTE | 2018-07-25 09:49 | ASMTCMCOM ---
CM Note CM Note Notes: CM met with pt in his room and also spoke with hospitalist. Pt is alert and oriented and eating breakfast. He has been living at [facility]; previous CM has put in referral for him to return there upon discharge. Pt is otherwise homeless and states that he is aware of [facility] but does not wish to onboard with them yet as he hopes to return to [place]. CM will continue to follow. CM D/C plan: SNF ([place] return) Date Signed: 07/25/2018 09:48 AM Electronically Signed By:Alma Avendano
--- NOTE | 2018-07-25 09:51 | ASMTCMCOM ---
CM Note CM Note Notes: CM gave patient phone # for Dr. Breanna Olivera as her PA, Eddie Barrett, has requested patient see her for a follow-up appointment in 2 - 4 weeks. CM also put phone # and info in D/C notes for patient. Date Signed: 07/25/2018 09:50 AM Electronically Signed By:Alma Avendano
[2018-07-25] MEDS ORDERED: GABAPENTIN 300 MG CAP PO ONE (10:00)
--- NOTE | 2018-07-25 11:43 | HOSPPROG ---
Hospitalist Progress Note Assessment/Plan: 58 yo M with PMH of etoh cirrhosis, recent MRSA bacteremia and thoracic diskitis , osteomyelitis diagnosed in June and treated at [facility] admitted with worsening back pain and possible worsening spinal OM. MRI obtained at [facility] on c/w T10-11, T11-12 Diskitis, OM, and now phlegmon. ID and NSG have been consulted. NSG recommends no surgical interventions and continued Vancomycin. # diskitis/osteomyelitis: involving t10-11 and t11-12 and now with report of associated phlegmon, not appreciated on MRI on 07/08 though at that time it was felt to be radiographically worsening. His blood cultures have been negative at [facility] since 06/20 and last on 07/05. #Low back pain with bilateral radiculopathy # MRSA bacteremia: as above, vanco # ? TV vegetation: MIKO performed at [facility] that noted possible TV mass-- cardiology at that time recommending repeat MIKO in several months. This can be done as an op unless recommended earlier by ID # etoh cirrhosis: without significant ascites on exam but does have LE edema, overall appears fairly well compensated, continue lasix/aldactone per below # Diabetes with hyperglycemia: started on SSI . 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 Olivera in 2-4 weeks, call at [phone] -Decrease Lasix to 20mg daily and Spironolactone to 50mg daily -Increase Neurontin to 600mg TID. Cont pain mgmt -Cont Keppra -glucose mgmt. On discharge, start Metformin -Cognitive eval today -Wound Care, pending eval -Nutrition following -PT/OT -SCD's Subjective: still with back pain. Eating. no cp or sob. BP is soft Objective: Vital Signs Temp Pulse Resp BP Pulse Ox 36.5 C 79 19 102/72 96 07/25/18 08:00 07/25/18 08:00 07/25/18 08:00 07/25/18 08:00 07/25/18 08:00 Laboratory Results 07/24/18 04:30 07/24/18 04:30 07/24/18 07/25/18 07/26/18 05:59 05:59 05:59 Intake Total 1150 Output Total 350 1275 450 Balance -350 -125 -450 PT 17.3 SEC (12.0-15.0) H 07/23/18 17:15 INR 1.48 (0.83-1.16) H 07/23/18 17:15 - Physical Exam Constitutional: no apparent distress, chronically ill appearing Eyes: PERRL, EOMI Ears, Nose, Mouth, Throat: moist mucous membranes, hearing normal, ears appear normal Cardiovascular: regular rate and rhythym, no murmur, rub, or gallop Respiratory: no respiratory distress, no rales or rhonchi Gastrointestinal: normoactive bowel sounds, soft, non-tender abdomen Skin: warm Musculoskeletal: generalized weakness Neurologic: AAOx3 Psychiatric: interacting appropriately, not anxious Lymph, Heme, Immunologic: No petechiae ICD10 Worksheet Patient Problems: Problems Problem Status Onset Back pain Acute Discitis Acute Osteomyelitis of thoracic spine Acute
--- NOTE | 2018-07-25 14:10 | PCMIDPN ---
Assessment/Plan: Assessment/Plan: * High-grade MRSA bacteremia with T10-12 diskitis, osteomyelitis and anterior paraspinal phlegmon: Continue vancomycin 750 mg IV q.8 hours. Trough of 17 is appropriate for high-grade bacteremia and osteomyelitis. Reviewed images which were available on packed from [facility] which only included lumbar spine MR with images only including T12. Have asked radiology department to have thoracic spine MRI post to PAC system from [facility] so this can be directly compared to current thoracic spine findings. Neurosurgery notes reviewed with plans for ongoing medical management given no discrete drainable focus. Will need imaging over time to ensure does not evolve further or develop spinal instability which would necessitate surgical intervention. Continue to follow up blood cultures to ensure remain negative. Follow creatinine and vancomycin trough twice weekly. Will plan for ongoing follow-up in our office after hospital discharge for longitudinal care. Time spent, greater than 35 min, of which greater than half was spent in coordination of care related to MRSA bacteremia with T10-12 diskitis including review of outside images and coordination with Radiology Department. 07/25/18 14:07 07/25/18 14:13 Subjective: Patient complains of mid thoracic pain. Consultation by Dr. Galdamez yesterday reviewed in full. MRI images which are available also reviewed in full. Objective: Vital Signs Temp Pulse Resp BP Pulse Ox 36.8 C 94 14 111/78 96 07/25/18 12:00 07/25/18 12:00 07/25/18 12:00 07/25/18 12:00 07/25/18 12:00 Laboratory Results 07/24/18 04:30 07/24/18 04:30 07/24/18 07/25/18 07/26/18 05:59 05:59 05:59 Intake Total 1150 Output Total 350 1275 1050 Balance -350 -125 -1050 ESR 57 MM/HR (0-20) H 07/23/18 11:50 C-Reactive Protein 6.4 mg/L (<10.0) 07/23/18 11:50 Vancomycin 750 mg IV q.8 hours # 2 Blood cultures x2 07/23/2018 no growth Laboratory Tests 07/24/18 09:15 Vancomycin Trough 17.7 - Physical Exam General Appearance: alert, no apparent distress, thin EENT: No scleral icterus, No thrush, No conjunctival petechiae Respiratory: lungs clear, No respiratory distress Cardiac/Chest: regular rate, rhythm, No systolic murmur Extremities: No inflammation Abdomen: non-tender, No distended Back: spine tenderness (Lower thoracic region) Skin: No embolic lesions Neuro/Psych: No motor weakness - Line/s RUE PICC Lines: No drainage, No erythema ICD10 Worksheet Patient Problems: Problems Problem Status Onset Back pain Acute Discitis Acute Osteomyelitis of thoracic spine Acute
[2018-07-25] MEDS: PATCH REMOVAL 1 EA PATCH TD SCH (20:58)
[2018-07-25] MEDS ORDERED: INSULIN LISPRO 100 UNIT/ML SC ONE (23:50)
[2018-07-26] MEDS: VANCOMYCIN 750 MG in D5W 150 ML IV SCH ×2 (02:08→09:44)
[2018-07-26] MEDS: oxyCODONE IR 5 MG TAB PO PRN ×3 (02:41→12:45)
[2018-07-26] MEDS: LEVOTHYROXINE 25 MCG TAB PO SCH (05:44)
[2018-07-26] MEDS: DABIGATRAN ETEXILATE MESYL 150 MG CAP PO SCH (07:19)
[2018-07-26] MEDS: levETIRAcetam 250 MG TAB PO SCH (07:19)
[2018-07-26] MEDS: MULTIVITAMINS 1 EACH TAB PO SCH (07:19)
[2018-07-26] MEDS: GABAPENTIN 300 MG CAP PO SCH (07:19)
[2018-07-26] MEDS: FAMOTIDINE 20 MG TAB PO SCH (07:19)
[2018-07-26 08:19] VITALS: BP 103/77
[2018-07-26] MEDS ORDERED: SPIRONOLACTONE 50 MG TAB PO SCH ×3 (09:00→10:34)
--- NOTE | 2018-07-26 09:07 | PDIAF ---
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 PICC Care - Routine: Yes - Orders Isolation Type: Contact Isolation Additional Instructions: Read and follow provided instructions. Follow-up with your primary care physician in 1-2 days for re-evaluation. CALL DR. TILLEY [phone] FOR A FOLLOW-UP APPOINTMENT IN 2 - 4 WEEKS. Return to the emergency department for worsening symptoms or other serious concerns. - Labs/Radiology CBC w/diff Date: 07/30/18 (Sunday x1 then weekly Sunday) CMP Date: 07/30/18 (Sunday x1 then weekly Sunday) Vanco Trough Date and Time: Weekly Sunday and except next week 07/30 and 08/01 Call or Fax Lab and Imaging Results to: Insert Book A Boat Luz Galdamez MD [facility] at fa - Follow Up Care Current Providers and Referrals: BARRERA NEWBERRY [Other] - As per Instructions Luz Galdamez MD [Medical Doctor] - 08/06/18 2:30 pm
[2018-07-26] MEDS: INSULIN LISPRO 100 UNIT/ML SC SCH ×2 (09:44→12:46)
[2018-07-26] MEDS: LIDOCAINE 4%/MENTHOL 1% PATCH TD SCH (09:45)
[2018-07-26] MEDS ORDERED: FUROSEMIDE 40 MG TAB PO SCH (10:34)
--- NOTE | 2018-07-26 10:39 | PDDCSUM ---
Discharge Summary Discharge Summary: 58 yo M with PMH of etoh cirrhosis, recent MRSA bacteremia and thoracic diskitis , osteomyelitis diagnosed in June and treated at [facility] admitted with worsening back pain and possible worsening spinal OM. MRI obtained at [facility] on c/w T10-11, T11-12 Diskitis, OM, and now phlegmon. ID and NSG were consulted. NSG recommends no surgical interventions at this time and continued Vancomycin. ID recommends cont Vancomycin. He will f/u with both ID and NSG. DDX: # diskitis/osteomyelitis: involving t10-11 and t11-12 and now with report of associated phlegmon, not appreciated on MRI on 07/08 though at that time it was felt to be radiographically worsening. His blood cultures have been negative at [facility] since 06/20 and last on 07/05. -follow blood cultures from 07/23 which are currently negative -cont Vancomycin which is at appropriate level currently -follow up with ID and NSG #Low back pain with bilateral radiculopathy -Gabapentin was increased # MRSA bacteremia: as above, vanco # ? TV vegetation: MIKO performed at [facility] that noted possible TV mass-- cardiology at that time recommending repeat MIKO in several months. This can be done as an op # etoh cirrhosis: without significant ascites on exam but does have LE edema, overall appears fairly well compensated, continue lasix/aldactone per below. Will need to monitor closely # Diabetes with hyperglycemia: Start Metformin # SPCMN: encourage nutrition, caloric intake # dementia: patient with very limited insight and poor memory, extensive eval at [facility] with conclusion that he lacks capacity and his daughter Lucila was assigned as his proxy # DVT: of RLE, on pradaxa currently # etoh abuse: in remission since his last hospitalization # sz d/o: continue on keppra Exam: NAD AAOX3 RRR CTA B SLIGHT DISTENTION OF ABD NO LE EDEMA MEDS: SEE MED REC TOTAL TIME SPENT ON D/C IS 35 MINS.
[2018-07-26] MEDS ORDERED: metFORMIN HCL 500 MG TAB PO SCH (10:45)
[2018-07-26] MEDS: oxyCODONE IR 15 MG TAB PO PRN (11:00)
--- NOTE | 2018-07-26 11:26 | ASMTDCNOTE ---
Case Management Discharge Discharge Order Complete? 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 Pt is agreeable to returning back to [facility]. [employer] will be transporting pt at 1pm today. RN received the report number for [employer]. Date Signed: 07/26/2018 11:25 AM Electronically Signed By:Lillian Koch
--- NOTE | 2018-07-26 11:34 | ASDISCHSUM ---
Discharge Information Plan Status:SNF Medically Cleared to Leave: Discharge Date: D/C Disposition:Nursing Home Facility [facility] D/C Disposition:Nursing Home Facility Projected Discharge Date:07/26/2018 11:00 AM Transportation at D/C:Wheelchair Van Discharge Delay Reason: Follow-Up Date:07/26/2018 11:00 AM Discharge Slot: Final Diagnosis: Placement Information Referral Type:*Detention/SNF Referral ID:[id number] Provider Name:Isa Cortezulder Address 1:[address] Address 2: City:[place] Selection Factors: State:[place] Patient Contact Information Contact Name:EMERSON Relationship:Daughter Address: Home Phone: City: [facility] Phone: [facility] Code: Email: Financial Information Financial Class:Medicaid Primary Plan Desc:[place] Primary Plan Number:[id number] Secondary Plan Desc: Secondary Plan Number: Assessment Information LACE LACE Acuity / Level of Answers: Yes Care: Did the patient have an inpatient admission? Comorbidities - select Answers: Dementia all that apply Diabetes (uncontrolled or controlled) Opioid dependence / Chronic pain Other Notes: Cirrhosis; HTN; DVT; Se izu res # of Emergency department Answers: 1-2 visits in the last 6 months Social determinants Answers: History of substance abuse (ETOH, street drugs, prescription drugs, etc.) Mental health diagnosis (anxiety, depression, pers onality disorders, etc.) Score: 19 Date Signed: 07/24/2018 09:53 AM Electronically Signed By:Evelyne Sinclair [facility] CM Progress Note CM Note CM Note Notes: CM spoke to Dr. Wynn about this case. Pt is a 58 y/o man admitted for back pain. Pt is currently residing at [facility]. CM sent [place] updates. As of today, pt is decisional. Per H&P, pt may not have been decisional at previous hospital which was [facility]. Pt has dementia and schizophrenia diagnosis. Pts daughter Lucila is his MDPOA. CM attempted to call her and she did not leaf size picker/her voicemail was not set up. Referral made to [facility]. PT, OT, ID has been consulted and awaiting recommendations. CM to follow. Plan: Most likely back to [facility] Date Signed: 07/24/2018 01:55 PM Electronically Signed By:SOFI Belle [facility] CM Progress Note CM Note CM Note Notes: CM met with pt in his room and also spoke with hospitalist. Pt is alert and oriented and eating breakfast. He has been living at [facility]; previous CM has put in referral for him to return there upon discharge. Pt is otherwise homeless and states that he is aware of [facility] but does not wish to onboard with them yet as he hopes to return to [facility]. CM will continue to follow. CM D/C plan: SNF ([facility] return) Date Signed: 07/25/2018 09:48 AM Electronically Signed By:Alma Billy.BALDEMAR [facility] CM Progress Note CM Note CM Note Notes: CM gave patient phone # for Dr. Breanna Olivera as her PA, Eddie Barrett, has requested patient see her for a follow-up appointment in 2 - 4 weeks. CM also put phone # and info in D/C notes for patient. Date Signed: 07/25/2018 09:50 AM Electronically Signed By:Alma Avendano Case Management Discharge Plan Note Case Management Discharge Discharge Order Complete? 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 Pt is agreeable to returning back to [facility]. [employer] will be transporting pt at 1pm today. RN received the report number for [employer]. Date Signed: 07/26/2018 11:25 AM Electronically Signed By:Lillian Koch Intervention Information Intervention Type:*Incorrect Registration Date of Service:07/23/2018 10:17 AM Patient Type:Inpatient Staff Member:BALDEMAR De Leon, Cathleen Hours: Discipline: Severity: Comment:
[2018-07-26] MEDS ORDERED: FUROSEMIDE 20 MG TAB PO ONE (12:00)
== END 2018-07-26 13:06 | DRG 344 ==
LOC: F3N 18:16
PROVIDERS: ADMIT Internal Medicine; ATTEND Internal Medicine
DX: M46.24 Osteomyelitis of vertebra, thoracic region (principal); E43 Unspecified severe protein-calorie malnutrition; F03.90 Unspecified dementia, unspecified severity, without behavioral disturbance, psychotic disturbance, mood disturbance, and anxiety; K70.30 Alcoholic cirrhosis of liver without ascites; B95.62 Methicillin resistant Staphylococcus aureus infection as the cause of diseases classified elsewhere; R78.81 Bacteremia; E11.65 Type 2 diabetes mellitus with hyperglycemia; I82.4Z1 Acute embolism and thrombosis of unspecified deep veins of right distal lower extremity; G40.909 Epilepsy, unspecified, not intractable, without status epilepticus; I10 Essential (primary) hypertension; K21.9 Gastro-esophageal reflux disease without esophagitis
CPT/HCPCS: 82435-PO; 82565-PO; 82947-PO; 84132-PO; 84295-PO; 84520-PO; 85014-ER; 92523-GN; 96374; 97161-GP; 97165-GO; A9585; J1170; J1815; J3370